=== PATIENT | male | born 2000 | race Caucasian/White ===

== ENCOUNTER 2020-11-18 21:40 | Emergency (ER) | payer BC ==
[~2020-11-18] VITALS: Ht 188 cm; Wt 86.4 kg
[2020-11-18 22:00] VITALS: TEMP 98.9
[2020-11-18] MEDS ORDERED: CRUTCHES MC (23:22)
[2020-11-18 23:32] VITALS: BP 116/64; PULSE 68
== END 2020-11-18 23:35 | disposition home or self-care (01) ==
LOC: COL.ER 21:40
DX: S93.401A Sprain of unspecified ligament of right ankle, initial encounter (principal); X50.1XXA Overexertion from prolonged static or awkward postures, initial encounter; Y93.67 Activity, basketball